=== PATIENT | female | born 1960 | race African-American/Black ===

== ENCOUNTER 2017-09-18 05:47 | Day surgery (SDC) | payer OTHER ==
[~2017-09-18] VITALS: Ht 167.6 cm; Wt 116.4 kg
[2017-09-18] VITALS (9 sets, daily range): BP systolic 122–171; BP diastolic 72–100
--- NOTE | ~2017-09-18 | EKG ---
[address] [address] ELECTROCARDIOGRAM REPORT Name: Kenya LITTLE Room #: 150-9 [facility].#: [id number] Admission: 09/18/17 Attend Phys: Sg Harvey MD Discharge: Date of : 60 Report #: [id number] THIS REPORT FOR: //name// [facility] Test Date: 2017-09-18 Test Time: 07:05:53 Pat Name: Kenya LITTLE Department: Room: 150 9 Gender: F Head Of Mobile: UCHE : 1960 Requested By: Sg Harvey Order Number: [id number] MD: Jc Montes Measurements Intervals [place] Rate: 63 P: 16 VA: 179 QRS: -16 QRSD: 95 T: 35 QT: 478 QTc: 490 Interpretive Statements Sinus rhythm Left ventricular hypertrophy Borderline prolonged QT interval Baseline wander in lead(s) II,III,aVR,aVL,aVF,V1,V2,V3,V5 No previous ECG available for comparison Electronically Signed On 09-18-2017 8:41:53 CDT by Jc Montes [email or web address] <ELECTRONICALLY SIGNED> By: Jc Montes MD, [facility] 09/18/17 0841 0705 0705 Jc Montes MD, [facility] /EPI
--- NOTE | ~2017-09-18 | O ---
[facility] [place] [address] OPERATIVE REPORT Name: Kenya LITTLE Room #: 150-9 [facility]..#: [id number] Admission: 09/18/17 Attend Phys: Sg Harvey MD Discharge: Date of : 60 Report #: [id number] THIS REPORT FOR: //name// CC: Sg BELL unknown DATE OF SERVICE: 09/18/2017 PREOPERATIVE DIAGNOSIS: Right shoulder rotator cuff tear and biceps tendon tear. POSTOPERATIVE DIAGNOSIS: Right shoulder rotator cuff tear and biceps tendon tear. PROCEDURE: Right shoulder rotator cuff repair and decompressive acromioplasty. SURGEON: Sg Harvey MD INDICATIONS: This 57-year-old female presents with right shoulder pain. She felt a popping sensation several weeks ago during a lift and has persistent discomfort despite appropriate conservative management. MRI study at [facility], several weeks ago, reveals evidence of full-thickness tearing of both the supraspinatus and infraspinatus tendons as well as some tendon damage to the biceps, the labrum and other cartilage structures appeared to be intact. Given these MRI findings and her ongoing symptoms, we have elected to go ahead with surgical repair of the rotator cuff. We discussed preoperatively that if the biceps is partially torn, then biceps tenotomy and tenodesis might be helpful. If the biceps is completely disrupted and distracted distally, then our plan is to leave that alone and simply deal with the rotator cuff. DESCRIPTION OF PROCEDURE: The patient was taken to the operating room where she was placed under general anesthesia and an interscalene block was also applied. The right shoulder and arm were meticulously prepped and draped. An anterior longitudinal skin incision was made beginning at the anterior most portion of the acromion and extending distally. The deltoid was split longitudinally and the subacromial space inspected. The findings were somewhat different than the preoperative MRI might have suggested. There was obvious thinning and fraying of the supraspinatus with only mild tendon retraction. The infraspinatus appeared to be intact and stable. There was really no evidence of significant or sizable rotator cuff tear. The area of thinning and partial thickness tearing at the supraspinatus was debrided, allowing visualization in the joint. The biceps tendon was completely ruptured and the distal aspect had retracted distally. There was small proximal stump remaining which was removed. The labrum seemed to be intact and stable. The articular surfaces seemed to be intact without significant damage. No other intra-articular abnormalities were identified. [address] [address] OPERATIVE REPORT Name: Kenya LITTLE Room #: 150-9 [facility] M.R.#: [id number] Admission: 09/18/17 Attend Phys: Sg Harvey MD Discharge: Date of : 60 Report #: [id number] Given these findings, I did not feel that retrieval of the distally retracted biceps tendon would be particularly helpful. The intraarticular contents seemed to be satisfactory and the labrum seemed to be stable. The rotator cuff damage is much less severe than the MRI might have suggested. Still there is obvious tearing of the supraspinatus portion with mild retraction. This area of tendon was debrided, creating a good stable edge. This was then repaired to a small bony defect, created in the greater tuberosity, using two #2 Tevdek sutures passed through the bone of the greater tuberosity. These were snugged down firmly and the repair seemed to be stable and anatomic and watertight. The shoulder was passed through a full arc of motion and the repair seemed to be stable. At the beginning of the procedure, a limited decompressive acromioplasty was performed. There was some mild spurring at the anterior aspect, which was improved with this. There is also some sense of mild movement and limited instability over a good portion of the acromion suggesting os acromiale. This too might contribute to some impingement symptoms; however, the movements seem to involve a good portion of the acromion and I did not feel that debridement of this would be appropriate. A satisfactory acromioplasty was performed and the undersurface seemed to be smooth and stable without significant impingement. At this point, the subacromial space was thoroughly irrigated. Good hemostasis was confirmed. The deltoid was then repaired using multiple #1 Vicryl sutures at the most proximal. These were placed through the bone in the anterior acromion, creating a good lqeb-hx-kekuda repair. The subcutaneous tissues were closed with 2-0 Monocryl. The skin was closed with a running subcuticular 2-0 Prolene, supplemented with Steri-Strips. A sterile dressing was applied. The patient was then awakened and returned to recovery room in good condition. By: [id number] Sg Harvey MD /juan antonio
[~2017-09-18 05:47] MED LIST: ACETAMINOPHEN-1 EAC1 PO; ACYCLOVIR 800800 MG PO; AMITRIPTYLINE150 MG PO; ASPIR-LOW81 MG PO; CELEXA40 MG PO; CYCLOBENZAPRINE5 MG PO; DESCOVY 200-251 EACH PO; DILT-XR240 M1 PO; HYDROCHLOROTHIA25 M2 PO; NAPROSYN500 MG PO; NEURONTIN600 MG PO; PREZCOBIX 8001 EACH PO; RANITIDINE HCL150 M1 PO; REMERON15 MG PO
[2017-09-18 07:19] LABS: CALCIUM 9.3 mg/dL (8.5-10.1); CREATININE 0.8 mg/dL (0.6-1.0); POTASSIUM 3.7 mmol/L (3.5-5.1)
[2017-09-19] VITALS: BP 140/65
[2017-09-19 04:00] VITALS: BP 161/77
[2017-09-19 07:37] VITALS: BP 176/98
[2017-09-19 09:03] VITALS: BP 176/98
== END 2017-09-19 10:37 | disposition home or self-care (01) ==
LOC: OR 05:47 → TBA 05:47 → 4N 11:24 → OR 12:11 → ENTRNSPT 09-19 10:28 → EDTRNSPTSTS 09-19 10:31 → OR 09-19 10:37
PROVIDERS: Orthopaedic Surgery
DX: M75.101 Unspecified rotator cuff tear or rupture of right shoulder, not specified as traumatic (principal); S46.211A Strain of muscle, fascia and tendon of other parts of biceps, right arm, initial encounter; I10 Essential (primary) hypertension; K21.9 Gastro-esophageal reflux disease without esophagitis; G47.33 Obstructive sleep apnea (adult) (pediatric); F32.9 Major depressive disorder, single episode, unspecified; F41.9 Anxiety disorder, unspecified; X58.XXXA Exposure to other specified factors, initial encounter; Y93.89 Activity, other specified; Y92.89 Other specified places as the place of occurrence of the external cause; Y99.8 Other external cause status; Z90.710 Acquired absence of both cervix and uterus; Z98.890 Other specified postprocedural states; Z88.8 Allergy status to other drugs, medicaments and biological substances; Z79.899 Other long term (current) drug therapy; Z79.82 Long term (current) use of aspirin
CPT/HCPCS: 10790; 50010; 50101; 50386; 50417; 50733; 56525; 56526; 62110; 62900; 64039; 70005